=== PATIENT | female | born 1940 | race Caucasian/White ===

== ENCOUNTER → 2017-03-14 14:00 | Outpatient (CLI) | payer MEDICARE ==
[2012-12-08 08:30] VITALS: BMI 32.0
== END | disposition home or self-care (01) ==
LOC: D.MAMMO 11:00
DX: Z12.31 Encounter for screening mammogram for malignant neoplasm of breast (principal)

== ENCOUNTER 2019-01-06 08:00 | Outpatient (CLI) | payer MEDICARE ==
[2012-12-08 08:30] VITALS: BMI 32.0
== END 2019-01-06 09:00 | disposition home or self-care (01) ==
LOC: D.MAMMO 08:00
PROVIDERS: ATTEND Emergency Medicine
DX: Z12.31 Encounter for screening mammogram for malignant neoplasm of breast (principal)